=== PATIENT | female | born 1955 | race African-American/Black ===

== ENCOUNTER 2021-06-27 22:47 | Emergency (ER) | payer OTHER, MEDICAID ==
[~2021-06-27] VITALS: Ht 160 cm; Wt 81.6 kg
[2021-06-27 22:55] VITALS: BP_SYST 162
[2021-06-27 23:28] LABS: BASOPHILS % (AUTO) 0.4 % (0.0-2.0); EOSINOPHILS # (AUTO) 0.2 K/uL (0.0-0.4); EOSINOPHILS % (AUTO) 1.3 % (0.0-4.0); HEMATOCRIT 40.5 % (36-48); HEMOGLOBIN 12.8 g/dL (12.0-16.0); LYMPHOCYTES # (AUTO) 2.3 K/uL (1.0-5.5); LYMPHOCYTES % (AUTO) 18.8 % (20.5-51.5); MEAN CORPUSCULAR HEMOGLOBIN 25 pg (27-31); MEAN CORPUSCULAR HGB CONC 32 % (32-36); MEAN CORPUSCULAR VOLUME 79 fL (79.0-98.0); MONOCYTES # (AUTO) 1.2 K/uL (0.0-1.0); MONOCYTES % (AUTO) 10.3 % (1.7-9.3); NEUTROPHILS # (AUTO) 8.4 K/uL (1.8-7.7); NEUTROPHILS % (AUTO) 69.2 % (40.0-70.0); PLATELET COUNT (AUTO) 646 K/uL (130-430); RED BLOOD CELL COUNT(AUTO) 5.14 MIL/uL (4.2-6.2); RED CELL DISTRIBUTION WIDTH 21.8 % (9.0-15.0); WHITE BLOOD COUNT (AUTO) 12.1 K/uL (4.8-10.8)
[2021-06-27 23:36] LABS: CALCIUM 9.2 mg/dL (8.4-11.0); CREATININE 0.8 mg/dL (0.55-1.30); POTASSIUM 3.4 mmol/L (3.5-5.1)
[2021-06-27 23:42] LABS: ALBUMIN 2.8 g/dL (3.4-4.8); TOTAL BILIRUBIN 0.3 mg/dL (0.0-1.0)
[2021-06-27] MEDS ORDERED: MORPHINE 4 MG INJ. 4 MG/ML VIAL IM ONE (23:45)
[2021-06-28 00:20] VITALS: BP_SYST 122
[2021-06-28] MEDS ORDERED: HYDR-3917 PO (02:15)
== END 2021-06-28 02:30 | disposition home or self-care (01) ==
LOC: SED 22:47
DX: M16.0 Bilateral primary osteoarthritis of hip (principal)
CPT/HCPCS: 36415; 72170; 80053; 83605; 85025; 96372; 99284; J2270

== ENCOUNTER 2022-03-01 10:54 | Outpatient (CLI) | payer OTHER, MEDICAID ==
[~2022-03-01 10:54] MED LIST: HYDR-3917 PO
== END 2022-03-01 20:49 | disposition home or self-care (01) ==
LOC: SMA 10:54
PROVIDERS: ATTEND Family Medicine
DX: Z12.31 Encounter for screening mammogram for malignant neoplasm of breast (principal)
CPT/HCPCS: 77067

== ENCOUNTER 2022-07-30 17:52 | Inpatient (IN) | payer OTHER, MEDICAID ==
[~2022-07-30] VITALS: Ht 160 cm; Wt 89.1 kg
[2022-07-30 18:03] VITALS: BP_SYST 95
--- NOTE | 2022-07-30 19:17 | NUR ---
[facility] CALLED WANTING STATUS UPDATE, REQUESTING CALL BACK WITH MORE INFO WHEN AVAILABLE
[2022-07-30] MEDS ORDERED: IPRATROPIUM/ALBUTEROL SULFATE 3 ML AMPUL.NEB (DUONEB) INH ONE (19:30)
[2022-07-30] MEDS ORDERED: predniSONE 20 MG TABLET PO ONE (19:30)
--- NOTE | 2022-07-30 20:20 | NUR ---
Placed in room 04 . Placed on chemical processing equipment repairer, blood pressure machine and pulse oximeter. To gown for exam. Side rails up.
[2022-07-30 20:59] LABS: BASOPHILS % (AUTO) 0.2 % (0.0-2.0); EOSINOPHILS # (AUTO) 0.4 K/uL (0.0-0.4); EOSINOPHILS % (AUTO) 4.4 % (0.0-4.0); HEMATOCRIT 46.8 % (36-48); HEMOGLOBIN 14.7 g/dL (12.0-16.0); LYMPHOCYTES # (AUTO) 1.2 K/uL (1.0-5.5); LYMPHOCYTES % (AUTO) 13.6 % (20.5-51.5); MEAN CORPUSCULAR HEMOGLOBIN 27 pg (27-31); MEAN CORPUSCULAR HGB CONC 31 % (32-36); MEAN CORPUSCULAR VOLUME 86 fL (79.0-98.0); MONOCYTES # (AUTO) 0.9 K/uL (0.0-1.0); MONOCYTES % (AUTO) 10.8 % (1.7-9.3); NEUTROPHILS # (AUTO) 6.1 K/uL (1.8-7.7); PLATELET COUNT (AUTO) 582 K/uL (130-430); RED BLOOD CELL COUNT(AUTO) 5.47 MIL/uL (4.2-6.2); WHITE BLOOD COUNT (AUTO) 8.5 K/uL (4.8-10.8)
[2022-07-30 21:55] LABS: ANION GAP 16 (5-15); CALCIUM 8.8 mg/dL (8.4-11.0); CHLORIDE 100 mmol/L (98-107); CREATININE 3.83 mg/dL (0.55-1.30); GLUCOSE 72 mg/dL (70-99); UREA NITROGEN, BLOOD 58 mg/dL (8-21)
--- NOTE | 2022-07-30 22:00 | NUR ---
PT IS ALERT AND ORIENTED X 4. PT IS BED BOUND . WITH 2 L NASAL CANULA.
[2022-07-30 22:04] LABS: GFR AFRICAN AMERICAN 15 mL/min (>90)
[2022-07-30 22:08] LABS: ALANINE AMINOTRANSFERASE 26 U/L (12-78); ASPARTATE AMINOTRANSFERASE 83 U/L (10-37); TOTAL BILIRUBIN 0.2 mg/dL (0.0-1.0)
[2022-07-30] MEDS ORDERED: NS 500 ML IV ONE (22:15)
[2022-07-30] MEDS ORDERED: ACETAMINOPHEN 500 MG TABLET PO ONE (22:15)
[2022-07-30 22:43] LABS: ALBUMIN 2.7 g/dL (3.4-4.8)
[2022-07-30] MEDS ORDERED: IPRATROPIUM/ALBUTEROL SULFATE 3 ML AMPUL.NEB (DUONEB) INH PRN (22:45)
[2022-07-30] MEDS: D5/0.45 NS 1,000 ML IV SCH (22:45)
--- NOTE | 2022-07-31 | NUR ---
PT IS RESTING. NO ACUTE DISTRESS NOTED. LOW BED
[2022-07-31 00:41] VITALS: BP_SYST 129
[2022-07-31] MEDS ORDERED: OXYCODONE/ACETAMINOPHEN *10*mg/325 mg TABLET PO PRN (02:00)
[2022-07-31] MEDS ORDERED: POLYETHYLENE GLYCOL 3350, 17 GM/ POWD.PACK PO PRN (02:00)
[2022-07-31] MEDS ORDERED: DOCUSATE SODIUM 100 MG CAPSULE PO PRN (02:00)
[2022-07-31] MEDS ORDERED: DIPHENHYDRAMINE HCL 12.5 MG/5 ML UDC PO PRN (02:00)
[2022-07-31] MEDS ORDERED: IPRATROPIUM/ALBUTEROL SULFATE 3 ML AMPUL.NEB (DUONEB) INH PRN (02:00)
[2022-07-31] MEDS ORDERED: hydrALAZINE HCL 25 MG TABLET PO PRN (02:00)
[2022-07-31] MEDS ORDERED: IPRATROPIUM/ALBUTEROL SULFATE 3 ML AMPUL.NEB (DUONEB) INH SCH (03:00)
[2022-07-31] MEDS ORDERED: FLUO40CA8 PO (05:28)
[2022-07-31] MEDS ORDERED: GABA600T PO (05:29)
[2022-07-31] MEDS ORDERED: GLUC1VIA4 IM (05:32)
[2022-07-31] MEDS ORDERED: HYDR-4039 PO ×2 (05:34→05:36)
[2022-07-31] MEDS ORDERED: IPRA4AER INH (05:37)
[2022-07-31] MEDS ORDERED: FURO-150 PO (05:38)
[2022-07-31] MEDS ORDERED: LEVO137T2 PO (05:40)
[2022-07-31] MEDS ORDERED: LISI20TA30 PO (05:41)
[2022-07-31] MEDS ORDERED: METO50TA7 PO (05:42)
[2022-07-31] MEDS ORDERED: POLY17PO4 PO (05:43)
[2022-07-31] MEDS ORDERED: MORP15TA60 PO (05:44)
[2022-07-31] MEDS ORDERED: FISH1CAP18 PO (05:45)
[2022-07-31] MEDS ORDERED: OMEP40CA20 PO (05:46)
[2022-07-31] MEDS ORDERED: ACET325C5 PO (05:47)
[2022-07-31] MEDS ORDERED: SPIR50TA PO (05:47)
[2022-07-31] MEDS ORDERED: NOR10 PO (05:48)
[2022-07-31] MEDS ORDERED: DIPH25CA83 PO (05:49)
[2022-07-31] MEDS ORDERED: BUSP5TAB3 PO (05:49)
[2022-07-31] MEDS ORDERED: DULO20CA PO ×2 (05:50→05:51)
[2022-07-31] MEDS ORDERED: DIVA250T PO (05:52)
[2022-07-31] MEDS ORDERED: DOCU-144 PO (05:53)
[2022-07-31] MEDS ORDERED: SACC250C3 PO (05:53)
[2022-07-31] MEDS ORDERED: PERC10 PO (05:54)
[2022-07-31] MEDS ORDERED: PRAZ1CAP2 PO (05:55)
[2022-07-31] MEDS ORDERED: TRAZ-250 PO (05:59)
[2022-07-31] MEDS ORDERED: CHOL500013 (06:01)
[2022-07-31] MEDS ORDERED: CHOL500052 PO (06:01)
[2022-07-31] MEDS ORDERED: NL IV (06:03)
--- NOTE | 2022-07-31 06:03 | NUR ---
Medication reconciliation completed with information provided by [facility]. Any prior medication reconciliation on file was reviewed and corrected.
[2022-07-31] MEDS ORDERED: ALBUTEROL SULFATE 0.083% 2.5 MG/3 ML VIAL.NEB INH PRN (07:00)
[2022-07-31] MEDS ORDERED: LEVOTHYROXINE SODIUM 0.137 MG TABLET PO SCH (07:00)
[2022-07-31] MEDS ORDERED: IPRATROPIUM BROM 0.5 MG/2.5 ML VIAL.NEB (ATROVENT) INH PRN (07:00)
--- NOTE | 2022-07-31 07:28 | NUR ---
Admit bed requested Patient will be admitted to care of [TEENA]. Admitted to [[facility] ] unit. Diagnosis [PNA] Inpatient (Yes or No) [YES] Observation (Yes or No) [NO] Orientation concerns or request close to nursing station (Yes or No) [] Covid Status [-] On vent or bipap [] Isolation requirements [NO] Needs a sitter [NO] From Home (Yes or if No enter name of facility) [[facility]] Requires Dialysis (Yes or No) [NO] Med Rec Completed (Yes of No) [YES]
--- NOTE | 2022-07-31 07:52 | NUR ---
Received report from restaurant shift supervisor RN Pt resting comfortably at this time BP 95/33 upon arrival Pt agitated when awaken from sleep Will continue to monitor
[2022-07-31] MEDS ORDERED: SACCHAROMYCES BOULARDII 250 MG CAPSULE (FLORASTOR) PO SCH (09:00)
[2022-07-31] MEDS ORDERED: lisinopriL 20 MG TABLET PO SCH (09:00)
[2022-07-31] MEDS ORDERED: FLUoxetine HCL 20 MG CAPSULE (PROzac) PO SCH (09:00)
[2022-07-31] MEDS ORDERED: FUROSEMIDE 20 MG/2 ML VIAL IVP SCH (09:00)
[2022-07-31] MEDS ORDERED: SPIRONOLACTONE 50 MG TABLET (ALDACTONE) PO SCH (09:00)
[2022-07-31] MEDS ORDERED: amLODIPine BESYLATE 10 MG TABLET PO SCH (09:00)
[2022-07-31] MEDS ORDERED: GABAPENTIN 300 MG CAPSULE PO SCH (09:00)
[2022-07-31] MEDS ORDERED: CHOLECALCIFEROL (VITAMIN D3) 5,000 UNIT TABLET PO SCH (09:00)
[2022-07-31] MEDS ORDERED: DULoxetine HCL 20 MG CAPSULE.DR PO SCH (09:00)
[2022-07-31] MEDS ORDERED: OMEGA-3/DHA/EPA/FISH OIL 1 GM CAPSULE PO SCH (09:00)
[2022-07-31] MEDS ORDERED: OMEPRAZOLE Non-Formulary 20 MG CAPSULE.DR PO SCH (09:00)
[2022-07-31] MEDS ORDERED: MORPHINE SULFATE 15 MG TABLET.ER PO SCH (09:00)
[2022-07-31] MEDS ORDERED: PANTOPRAZOLE SODIUM 40 MG TAB PO SCH (09:00)
[2022-07-31] MEDS ORDERED: METOPROLOL TARTRATE 50 MG TABLET PO SCH (09:00)
[2022-07-31] MEDS ORDERED: busPIRone HCL 5 MG TABLET PO SCH (09:00)
[2022-07-31] MEDS ORDERED: AZITHROMYCIN 250 MG in NS 250 ML IV SCH (09:00)
[2022-07-31] MEDS ORDERED: AZITHROMYCIN 500 MG/VIAL (ZITHROMAX) IV ONE (09:44)
[2022-07-31] MEDS: LEVOFLOXACIN 250 MG/D5W 50 ML IV SCH (09:44)
[2022-07-31] MEDS: ENOXAPARIN SODIUM 30 MG/0.3 ML SYRINGE SUBCUT SCH (09:45)
[2022-07-31] MEDS ORDERED: AZITHROMYCIN 500 MG in NS 250 ML IV SCH (10:00)
--- NOTE | 2022-07-31 11:16 | NUR ---
CONSULTATION PAGED/CALLED Reason for Consultation: [] RESP FAIL Person Who was Notified: [] NERI Consulting Physician: [] DR KRAMER Media Services Coordinator Specialty: [] PULMO Ordering Physician: [] DR OWENS
--- NOTE | 2022-07-31 11:17 | NUR ---
CONSULTATION PAGED/CALLED Reason for Consultation: [] RENAL FAIL Person Who was Notified: [] LUISITO Consulting Physician: [] DR DICKINSON Library Paraprofessional Specialty: [] NEPHRO Ordering Physician: [] DR OWENS
--- NOTE | 2022-07-31 11:30 | NUR ---
RECEIVED PATIENT FROM ER NURSE, AWAKE AND ORIENTED TO SELF, CONTINUOS EPISODES OF CONFUSION DURING ASSESSMENT, PATIENT ON 2LPM O2 VIA NC, NO C/O PAIN OR DISCOMFORT AT THIS TIME, WILL ASSUME ALL CARE OF PATIENT
[2022-07-31 11:42] VITALS: BP_SYST 102
[2022-07-31] MEDS: D5/0.45 NS 1,000 ML IV SCH (12:05)
--- NOTE | 2022-07-31 19:15 | NUR ---
change of shift.pt.presents lethargic status.affect:quiescent.pt.arousable but not unable to sustain alert status.cardio monitor presents stable cardio status.pt.presents iv access location lt.forearm.intact;patent.call light/telephone w/in access of the pt.
--- NOTE | 2022-07-31 20:00 | NUR ---
pt.assessed.v/s assessed values wnl.no c/o pain.nausea.pt.presents lethargic status.02-sat%96%.per flacc pain mgx pt.absent facial grimaces/body posturing.iv access intact;patent.pt.assessed for cleanliness.pt.repositioned.call light/ telephone placed w/in access of the pt.
[2022-07-31] MEDS ORDERED: traZODone HCL 50 MG TABLET (DESYREL) PO SCH (21:00)
[2022-07-31] MEDS ORDERED: PRAZOSIN HCL 1 MG CAPSULE PO SCH (21:00)
[2022-07-31] MEDS ORDERED: DIVALPROEX SODIUM 250 MG TAB.SR.24H (DEPAKOTE ER) PO SCH (21:00)
--- NOTE | 2022-07-31 21:00 | NUR ---
2100p medications administered.pt.capable to ingest the po medications w/out difficulty.no c/o pian,nausea. call light/telephone placed w/in access of the pt.
--- NOTE | 2022-07-31 22:00 | NUR ---
pt.assessed.pt.quiescent.iv access intact;patent.per flacc pain mgx pt.absent facial grimaces/body posturing.pt.assessed for cleanliness.pt.repositioned.call light/telephone placed w/in access of the pt.
--- NOTE | 2022-08-01 | NUR ---
pt.assessed.v/s assessed values wnl.no c/o pain,nausea.no requests posited@this hour.pt.assessed for cleanliness. pt.repositioned.call light/telephone placed w/in access of the pt.
[2022-08-01] MEDS: D5/0.45 NS 1,000 ML IV SCH ×2 (01:15→05:34)
--- NOTE | 2022-08-01 02:00 | NUR ---
pt.assessed.pt.quiescent.per flacc pain mgx pt.absent facial grimaces/body posturing.pt.assessed for cleanliness. pt.repositioned.call light/telephone placed w/in access of the pt.
--- NOTE | 2022-08-01 04:00 | NUR ---
pt.assessed.pt.quiescent;somnolent.per flacc pain mgx pt.absent facial grimaces/body posturing.pt.assessed for cleanliness. pt.repositioned.iv access intact.i have taken photos of the lower extremities.call light/telephone placed w/in access of the pt.
--- NOTE | 2022-08-01 06:00 | NUR ---
pt.assessed.pt.assessed for cleanliness.pt.repositioned.noted pt.presents wounds sacrum.wound photographed initial wound care attended to..iv access intact;patent pt.c/o pain no medication;pain ordered./elsa abebe.pt.weighed 2/t chf hx.call light/telephone placed w/in access of the pt.
[2022-08-01 06:49] LABS: BASOPHILS % (AUTO) 0.3 % (0.0-2.0); EOSINOPHILS % (AUTO) 0.5 % (0.0-4.0); HEMATOCRIT 43.2 % (36-48); HEMOGLOBIN 13.8 g/dL (12.0-16.0); LYMPHOCYTES % (AUTO) 11.2 % (20.5-51.5); MEAN CORPUSCULAR HEMOGLOBIN 27 pg (27-31); MEAN CORPUSCULAR HGB CONC 32 % (32-36); MEAN CORPUSCULAR VOLUME 84 fL (79.0-98.0); MONOCYTES # (AUTO) 1.2 K/uL (0.0-1.0); MONOCYTES % (AUTO) 13.3 % (1.7-9.3); NEUTROPHILS # (AUTO) 6.7 K/uL (1.8-7.7); NEUTROPHILS % (AUTO) 74.7 % (40.0-70.0); PLATELET COUNT (AUTO) 658 K/uL (130-430); RED BLOOD CELL COUNT(AUTO) 5.14 MIL/uL (4.2-6.2); RED CELL DISTRIBUTION WIDTH 17.6 % (9.0-15.0)
--- NOTE | 2022-08-01 08:00 | NUR ---
RECEIVED PATIENT FROM PM NURSE, ALERT TO SELF AND SITUATION, IN AND OUT OF SLEEP DURING ASSESMENT, NO C/O PAIN OR DISCOMFORT, WILL ASSUME ALL CARE OF PATIENT
[2022-08-01 08:59] LABS: ALBUMIN 2.4 g/dL (3.4-4.8); CREATININE 2.42 mg/dL (0.55-1.30); TOTAL BILIRUBIN 0.2 mg/dL (0.0-1.0)
[2022-08-01] MEDS: ENOXAPARIN SODIUM 30 MG/0.3 ML SYRINGE SUBCUT SCH (09:48)
[2022-08-01 13:44] VITALS: BP_SYST 146
--- NOTE | 2022-08-01 17:00 | NUR ---
WOUND CARE TO COCCYX COMPLETE, PATIENT TOLERATED WELL
[2022-08-01 18:27] VITALS: BP_SYST 154
--- NOTE | 2022-08-01 20:35 | NUR ---
Patient REFUSING IV Re Insertion .
[2022-08-01 21:00] VITALS: BP_SYST 137
--- NOTE | 2022-08-01 21:05 | NUR ---
Phoned paged DR TEENA BRISCOE
--- NOTE | 2022-08-01 21:10 | NUR ---
NEW ORDERS FOR PAIN MEDICATION NORCO 5/325 MG PO
--- NOTE | 2022-08-01 21:20 | NUR ---
UPDATED DR DICKINSON PATIENT REFUSING IV & IV REINSERTION .
[2022-08-02] VITALS: BP_SYST 154
[2022-08-02] MEDS: HYDROcodone/ACETAMIN 5-325 MG TAB (NORCO/ VICODIN) PO PRN ×3 (00:14→17:15)
[2022-08-02 00:20] LABS: BILIRUBIN,URINE NEGATIVE (NEGATIVE); COLOR,URINE YELLOW (YELLOW); GLUCOSE,URINE NEGATIVE (NEGATIVE); KETONES,URINE NEGATIVE (NEGATIVE); LEUKOCYTE ESTERASE ,URINE 1+ (NEGATIVE); NITRITE, URINE NEGATIVE (NEGATIVE); PROTEIN URINE NEGATIVE (NEGATIVE); UROBILINOGEN,URINE 0.2 (0.2-1.0)
--- NOTE | 2022-08-02 00:22 | NUR ---
URINE collected & sent to LAB .
[2022-08-02 00:24] LABS: BLOOD, URINE TRACE (NEGATIVE)
[2022-08-02 00:26] LABS: CLARITY/URINE SLIGHTLY CLOUDY (CLEAR)
--- NOTE | 2022-08-02 00:27 | NUR ---
NORCO 5/325 MG PO GIVEN FOR GENERAL PAIN comfort measures implemented off loading with pillows tolerated .
[2022-08-02 00:29] LABS: BACTERIA,URINE FEW /HPF (None Seen); WBC,URINE 50-80 /HPF (0-3); YEAST,URINE Few /HPF (None Seen)
--- NOTE | 2022-08-02 01:47 | NUR ---
Reposition & Turning off loading with pillows on schedule kept clean also dry as needed comfort measures helpful & tolerated .
[2022-08-02] MEDS: D5/0.45 NS 1,000 ML IV SCH ×2 (04:05→17:25)
--- NOTE | 2022-08-02 04:56 | NUR ---
Hourly Rounding patient awake comfort measures implemented Reposition & Turn on schedule tolerate skin dry warm .
--- NOTE | 2022-08-02 06:38 | NUR ---
NORCO TABLET po given for general pain off loading & position change on schedule helpful .
[2022-08-02] MEDS: LEVOFLOXACIN 250 MG/D5W 50 ML IV SCH ×2 (09:24→09:27)
[2022-08-02] MEDS: ENOXAPARIN SODIUM 30 MG/0.3 ML SYRINGE SUBCUT SCH (09:24)
[2022-08-02] MEDS ORDERED: MORPHINE SULFATE 15 MG TABLET.ER PO ONE (10:15)
[2022-08-02 12:00] VITALS: BP_SYST 148
[2022-08-02 14:35] LABS: CREATININE 1.32 mg/dL (0.55-1.30)
[2022-08-02 16:00] VITALS: BP_SYST 163
[2022-08-02] MEDS ORDERED: DOCUSATE SODIUM 100 MG CAPSULE PO PRN (17:15)
[2022-08-02 19:00] VITALS: BP_SYST 129
--- NOTE | 2022-08-02 19:30 | NUR ---
handoff has been given to Ron
[2022-08-02 20:00] VITALS: BP_SYST 129
--- NOTE | 2022-08-02 20:48 | NUR ---
Patient requested to be bathe. Due to patient condition, per patient hip displacement, need assistance of nurse. Informed nurse Ron for assistance, Stated he will need to finish med pass. Provided number to call me to change pt.
[2022-08-02] MEDS ORDERED: MORPHINE SULFATE 15 MG TABLET.ER PO SCH (21:00)
[2022-08-02] MEDS: DIVALPROEX SODIUM 250 MG TAB.SR.24H (DEPAKOTE ER) PO SCH (21:00)
--- NOTE | 2022-08-02 22:00 | NUR ---
Reminded catalina banks to call me for patient to be changed. Nurse banks informed and aware.
[2022-08-02] MEDS: hydrALAZINE HCL 25 MG TABLET PO SCH (23:37)
[2022-08-02] MEDS: busPIRone HCL 5 MG TABLET PO SCH (23:37)
[2022-08-02] MEDS: METOPROLOL TARTRATE 50 MG TABLET PO SCH (23:39)
[2022-08-02] MEDS: MORPHINE SULFATE 15 MG TABLET.ER PO SCH (23:39)
[2022-08-02] MEDS: GABAPENTIN 300 MG CAPSULE PO SCH (23:39)
[2022-08-03] VITALS (7 sets, daily range): BP systolic 141–170
[2022-08-03] MEDS: LEVOTHYROXINE SODIUM 0.137 MG TABLET PO SCH (05:57)
[2022-08-03] MEDS: D5/0.45 NS 1,000 ML IV SCH (06:45)
[2022-08-03 06:59] LABS: BASOPHILS % (AUTO) 0.5 % (0.0-2.0); EOSINOPHILS # (AUTO) 0.1 K/uL (0.0-0.4); HEMATOCRIT 49.6 % (36-48); HEMOGLOBIN 16.1 g/dL (12.0-16.0); LYMPHOCYTES # (AUTO) 1.4 K/uL (1.0-5.5); LYMPHOCYTES % (AUTO) 15.2 % (20.5-51.5); MEAN CORPUSCULAR HEMOGLOBIN 27 pg (27-31); MEAN CORPUSCULAR HGB CONC 32 % (32-36); MEAN CORPUSCULAR VOLUME 83 fL (79.0-98.0); MONOCYTES # (AUTO) 1.4 K/uL (0.0-1.0); MONOCYTES % (AUTO) 15.3 % (1.7-9.3); NEUTROPHILS # (AUTO) 6.1 K/uL (1.8-7.7); PLATELET COUNT (AUTO) 648 K/uL (130-430); RED BLOOD CELL COUNT(AUTO) 6.01 MIL/uL (4.2-6.2); RED CELL DISTRIBUTION WIDTH 16.9 % (9.0-15.0)
[2022-08-03 07:26] LABS: CALCIUM 9.6 mg/dL (8.4-11.0); CREATININE 1.09 mg/dL (0.55-1.30)
--- NOTE | 2022-08-03 08:00 | NUR ---
Initial Notes Patient is AOx3. Forgetful. No ss of distress noted. Breathing is even and nonlabored, on room air. NO SOB noted. Patient denies pain. Vital signs obtained, as documented. Patient has no IV access. Bed is locked, alarm on, and at lowest position. Call light within reach.
--- NOTE | 2022-08-03 10:13 | NUR ---
Dietitian Recommendations * Continue consistent CHO diet. Recommend downgrading to soft texture d/t missing dentures * Rec Glucerna BID * Consider wound supplements: MVI, 250 mg VIT C, Tremayne BID * Consider 220mg ZnSO4 x 14 days for wound healing * Send snacks between meals; RD noted in computrition GS, MPH, RD Please refer to RD Assessment for further details Addendum: 08/03/22 at [address] Amended: Links added.
[2022-08-03] MEDS: GABAPENTIN 300 MG CAPSULE PO SCH ×2 (10:25→21:24)
[2022-08-03] MEDS: amLODIPine BESYLATE 10 MG TABLET PO SCH (10:26)
[2022-08-03] MEDS: DULoxetine HCL 20 MG CAPSULE.DR PO SCH (10:26)
[2022-08-03] MEDS: METOPROLOL TARTRATE 50 MG TABLET PO SCH ×2 (10:26→21:24)
[2022-08-03] MEDS: hydrALAZINE HCL 25 MG TABLET PO SCH ×3 (10:27→21:22)
[2022-08-03] MEDS: MORPHINE SULFATE 15 MG TABLET.ER PO SCH ×2 (10:27→21:24)
[2022-08-03] MEDS: ENOXAPARIN SODIUM 30 MG/0.3 ML SYRINGE SUBCUT SCH (10:28)
[2022-08-03] MEDS: busPIRone HCL 5 MG TABLET PO SCH ×2 (10:28→21:22)
--- NOTE | 2022-08-03 10:30 | NUR ---
Notes Patient has been cleaned and reposition. Wound care done. Patient tolerated well. No ss of distress noted. New IV inserted to R Forearm 22 G. Blood return. Flushes well. Patent.
--- NOTE | 2022-08-03 12:00 | NUR ---
Notes Patient is eating lunch. No ss of distress noted. Denies pain. NO SOB noted. Safety precautions in place and call light within reach.
[2022-08-03] MEDS: NORMAL SALINE 5 ML DISP.SYRIN IVF SCH ×2 (13:58→21:25)
--- NOTE | 2022-08-03 16:00 | NUR ---
NOTES- HOSPICE Hospice nurse at bedside talking to patient and family. Hospice nurse is Veronica, from [facility] Contact info: work phone cellphone
--- NOTE | 2022-08-03 16:55 | NUR ---
notes patient gives consent to give information or call son and his regarding her care Lázaro Casillas (SON) Marika Godoy (daughter in law)
--- NOTE | 2022-08-03 16:57 | NUR ---
Notes Patient has been reposition and is resting. Denies pain. No distress noted. Safety precautions in place and call light within reach.
--- NOTE | 2022-08-03 18:56 | NUR ---
Closing Notes Patient is awake, watching TV, and eating dinner. Denies pain. No SOB noted. Breathing is even and nonlabored, on room air. IV patent. No ss of distress noted. Patient is stable. All needs met. Bed is locked, alarm on, and at lowest position. Call light within reach.
[2022-08-03] MEDS: DIVALPROEX SODIUM 250 MG TAB.SR.24H (DEPAKOTE ER) PO SCH (21:23)
[2022-08-04 02:02] VITALS: BP_SYST 143
[2022-08-04] MEDS: HYDROcodone/ACETAMIN 5-325 MG TAB (NORCO/ VICODIN) PO PRN ×2 (03:50→12:01)
[2022-08-04] MEDS: NORMAL SALINE 5 ML DISP.SYRIN IVF SCH ×3 (05:58→20:56)
[2022-08-04] MEDS: LEVOTHYROXINE SODIUM 0.137 MG TABLET PO SCH (06:05)
[2022-08-04 07:14] LABS: BASOPHILS # (AUTO) 0.1 K/uL (0.0-0.2); BASOPHILS % (AUTO) 0.9 % (0.0-2.0); EOSINOPHILS # (AUTO) 0.4 K/uL (0.0-0.4); HEMATOCRIT 49.2 % (36-48); HEMOGLOBIN 15.9 g/dL (12.0-16.0); LYMPHOCYTES # (AUTO) 2.7 K/uL (1.0-5.5); MEAN CORPUSCULAR HEMOGLOBIN 26 pg (27-31); MEAN CORPUSCULAR HGB CONC 32 % (32-36); MEAN CORPUSCULAR VOLUME 82 fL (79.0-98.0); MONOCYTES # (AUTO) 1.9 K/uL (0.0-1.0); MONOCYTES % (AUTO) 13.7 % (1.7-9.3); NEUTROPHILS # (AUTO) 8.9 K/uL (1.8-7.7); NEUTROPHILS % (AUTO) 63.4 % (40.0-70.0); PLATELET COUNT (AUTO) 691 K/uL (130-430); RED BLOOD CELL COUNT(AUTO) 6.01 MIL/uL (4.2-6.2); RED CELL DISTRIBUTION WIDTH 16.9 % (9.0-15.0)
[2022-08-04 07:24] LABS: ALBUMIN 2.5 g/dL (3.4-4.8); C-REACTIVE PROTEIN QUANT 0.5 mg/dL (0-0.5); CALCIUM 9.3 mg/dL (8.4-11.0); CREATININE 1.09 mg/dL (0.55-1.30); TOTAL BILIRUBIN 0.5 mg/dL (0.0-1.0)
[2022-08-04 08:00] VITALS: BP_SYST 112; BP_SYST 136
[2022-08-04 11:28] LABS: ERYTHROCYTE SEDIMENTATION RATE 7 MM/HR (0-20)
[2022-08-04 12:00] VITALS: BP_SYST 161
[2022-08-04] MEDS: GABAPENTIN 300 MG CAPSULE PO SCH ×2 (12:02→20:56)
[2022-08-04] MEDS: hydrALAZINE HCL 25 MG TABLET PO SCH ×3 (12:02→20:54)
[2022-08-04] MEDS: LEVOFLOXACIN 250 MG/D5W 50 ML IV SCH (12:02)
[2022-08-04] MEDS: DULoxetine HCL 20 MG CAPSULE.DR PO SCH (12:03)
[2022-08-04] MEDS: busPIRone HCL 5 MG TABLET PO SCH ×2 (12:03→20:55)
[2022-08-04] MEDS: MORPHINE SULFATE 15 MG TABLET.ER PO SCH ×2 (12:03→20:56)
[2022-08-04] MEDS: amLODIPine BESYLATE 10 MG TABLET PO SCH (12:03)
[2022-08-04] MEDS: METOPROLOL TARTRATE 50 MG TABLET PO SCH ×2 (12:06→20:55)
[2022-08-04] MEDS: ENOXAPARIN SODIUM 30 MG/0.3 ML SYRINGE SUBCUT SCH (12:07)
[2022-08-04 16:00] VITALS: BP_SYST 135
[2022-08-04] MEDS: ACETAMINOPHEN 650 MG/20.3 ML UDC GT PRN (17:49)
--- NOTE | 2022-08-04 18:30 | NUR ---
Miss Sotelo has been noted to be pleasant and cooperative this shift. her case management department did contact staff related to hospices eval and DCP. Yudy [phone] states that things will likely be finalized tomorrow and that the personal property appraiser should be her son Lázaro. a new order for Tylenol was obtained and given for a headache
[2022-08-04 19:00] VITALS: BP_SYST 145
--- NOTE | 2022-08-04 19:15 | NUR ---
handoff has been given to Ron
[2022-08-04 20:00] VITALS: BP_SYST 145
[2022-08-04] MEDS: DIVALPROEX SODIUM 250 MG TAB.SR.24H (DEPAKOTE ER) PO SCH (20:58)
[2022-08-05 01:14] VITALS: BP_SYST 127
[2022-08-05] MEDS: ACETAMINOPHEN 650 MG/20.3 ML UDC GT PRN ×2 (01:54→22:54)
[2022-08-05] MEDS: HYDROcodone/ACETAMIN 5-325 MG TAB (NORCO/ VICODIN) PO PRN ×3 (04:17→22:55)
[2022-08-05] MEDS: NORMAL SALINE 5 ML DISP.SYRIN IVF SCH ×3 (06:48→22:52)
[2022-08-05] MEDS: LEVOTHYROXINE SODIUM 0.137 MG TABLET PO SCH (06:48)
--- NOTE | 2022-08-05 08:00 | NUR ---
Miss Sotelo has been assessed as indicated. Her mentation remains cleat. She has no periods of confusion and is resting quietly at this time
[2022-08-05 08:34] LABS: BASOPHILS # (AUTO) 0.1 K/uL (0.0-0.2); BASOPHILS % (AUTO) 0.5 % (0.0-2.0); EOSINOPHILS # (AUTO) 0.6 K/uL (0.0-0.4); HEMATOCRIT 51.3 % (36-48); HEMOGLOBIN 16.6 g/dL (12.0-16.0); LYMPHOCYTES # (AUTO) 2.9 K/uL (1.0-5.5); MEAN CORPUSCULAR HEMOGLOBIN 27 pg (27-31); MEAN CORPUSCULAR HGB CONC 32 % (32-36); MEAN CORPUSCULAR VOLUME 83 fL (79.0-98.0); MONOCYTES # (AUTO) 1.7 K/uL (0.0-1.0); MONOCYTES % (AUTO) 11.6 % (1.7-9.3); NEUTROPHILS # (AUTO) 9.4 K/uL (1.8-7.7); NEUTROPHILS % (AUTO) 63.9 % (40.0-70.0); PLATELET COUNT (AUTO) 607 K/uL (130-430); RED BLOOD CELL COUNT(AUTO) 6.21 MIL/uL (4.2-6.2); RED CELL DISTRIBUTION WIDTH 16.7 % (9.0-15.0); WHITE BLOOD COUNT (AUTO) 14.6 K/uL (4.8-10.8)
[2022-08-05 09:08] LABS: ALANINE AMINOTRANSFERASE 18 U/L (12-78); ALBUMIN 2.5 g/dL (3.4-4.8); ANION GAP 5 (5-15); ASPARTATE AMINOTRANSFERASE 27 U/L (10-37); CHLORIDE 102 mmol/L (98-107); CREATININE 1.31 mg/dL (0.55-1.30); GLUCOSE 86 mg/dL (70-99); PHOSPHORUS 2.8 mg/dL (2.7-4.5); TOTAL BILIRUBIN 0.4 mg/dL (0.0-1.0); UREA NITROGEN, BLOOD 23 mg/dL (8-21)
[2022-08-05 09:51] LABS: GFR AFRICAN AMERICAN 52 mL/min (>90)
[2022-08-05 09:58] LABS: C-REACTIVE PROTEIN QUANT < 0.2 mg/dL (0-0.5)
[2022-08-05] MEDS: busPIRone HCL 5 MG TABLET PO SCH ×2 (10:27→22:50)
[2022-08-05] MEDS: METOPROLOL TARTRATE 50 MG TABLET PO SCH ×2 (10:28→22:51)
[2022-08-05] MEDS: amLODIPine BESYLATE 10 MG TABLET PO SCH (10:28)
[2022-08-05] MEDS: MORPHINE SULFATE 15 MG TABLET.ER PO SCH ×2 (10:28→22:47)
[2022-08-05] MEDS: GABAPENTIN 300 MG CAPSULE PO SCH ×2 (10:29→22:47)
[2022-08-05] MEDS: hydrALAZINE HCL 25 MG TABLET PO SCH ×3 (10:29→22:50)
[2022-08-05] MEDS: DULoxetine HCL 20 MG CAPSULE.DR PO SCH (10:29)
[2022-08-05] MEDS: ENOXAPARIN SODIUM 30 MG/0.3 ML SYRINGE SUBCUT SCH (10:30)
[2022-08-05 11:24] LABS: URINE SODIUM, RANDOM 77 mmol/L (40-220)
[2022-08-05 12:20] VITALS: BP_SYST 109
[2022-08-05] MEDS: 0.45% NACL 1,000 ML IV SCH (13:15)
[2022-08-05 14:06] LABS: ERYTHROCYTE SEDIMENTATION RATE 2 MM/HR (0-20)
[2022-08-05] MEDS: FLUCONAZOLE 100 mg/ NS 50 ML IV SCH (16:14)
[2022-08-05 17:45] VITALS: BP_SYST 144
--- NOTE | 2022-08-05 18:00 | NUR ---
Miss Sotelo has been successfully treated for headache as well as bilateral hip pain. She has been repositioned frequently. Newly ordered IVF and ABX have been well tolerated. She anticipates that family will be in to visit her this evening. She is presently resting quietly
--- NOTE | 2022-08-05 19:15 | NUR ---
Handoff has been given to Lily
[2022-08-05] MEDS: DIVALPROEX SODIUM 250 MG TAB.SR.24H (DEPAKOTE ER) PO SCH (23:15)
[2022-08-06 01:02] VITALS: BP_SYST 140
[2022-08-06] MEDS: LEVOTHYROXINE SODIUM 0.137 MG TABLET PO SCH (07:10)
[2022-08-06] MEDS: NORMAL SALINE 5 ML DISP.SYRIN IVF SCH ×3 (07:10→23:04)
[2022-08-06] MEDS: 0.45% NACL 1,000 ML IV SCH (07:45)
[2022-08-06 07:55] LABS: CALCIUM 8.7 mg/dL (8.4-11.0); CREATININE 0.97 mg/dL (0.55-1.30)
[2022-08-06 08:27] VITALS: BP_SYST 127
--- NOTE | 2022-08-06 08:30 | NUR ---
Dietitian Recommendations * Continue consistent CHO diet. Recommend downgrading to soft texture d/t missing dentures * Rec Glucerna BID * Consider wound supplements: MVI, 250 mg VIT C, Tremayne BID * Consider 220mg ZnSO4 x 14 days for wound healing * Consider obtaining Hgba1c value GS, MPH, RD Please refer to Nutrition F/U for further details
--- NOTE | 2022-08-06 08:30 | NUR ---
Nutrition F/U RD reviewed pts current EMR including diet hx, physician notes, nursing notes, pertinent labs/meds/procedures, care trends and care activity. Short note d/t high workload Medical History Comment: per EMR: 67yo female presented to ER [facility] after staff reports that patient was noticed to be hypoxic with low O2 saturation associated with lethargy and altered mental status. Staff placed the patient on 10 L nasal cannula and EMS was called. On EMS arrival, EMS reports that patient was alert and oriented x3. Patient was placed on 6 L nasal cannula. Patient is not on home O2. No alleviating or exacerbating factors. Patient denies cough, chest pain, shortness of breath, nausea, vomiting, fever, or any other medical complaints. Because of above, patient was taken to the ER for further evaluation and treatment. Pt found to have DIANN on CKD PMHx: CHF, COPD, and diabetes Subjective Information RD rounded to pt room and s/w pt. She says the food texture modification has been helpful. She asked for some snacks ; RD got for her and noted in computrition. Pt states she is not diabetic, but she is on Consistent CHO diet, RD said she would look into that. Pt is eating better and says she will be D/C soon. Per EMR review, abd soft, distended; active bowel sounds. Pertinent Medications Reviewed Pertinent Labs Reviewed Height (Feet) 5 feet Height (Inches) 3.00 inches Weight (Pounds) 195 pounds Weight (Calculated Kilograms) 88.350243 kilograms Patient Weight 88.451 kg Body Mass Index 34.54 kg/m2 %IBW 171 Basehor/Adjusted Body Weight 115#/ 52 kg / ABW 62 kg Recent Weight Change Yes - 15# in a month, intentional loss Weight Status Obese Gastrointestinal Symptoms Nausea Last BM Aug 04, 2022 Difficulty With: Chewing Food Allergies per pt Usual Diet At Home Consistent CHO at facility per RN screen Current % PO Good avg of 75% x 8 meals Estimated Energy Expenditure (kcals/day) 5767-8421 kcal (25-30 kcal/kg ABW d/t wound healing) Estimated Protein Required (g/day) 50- 62g (.8-1 g/kg ABW d/t wounds, DIANN) Estimated Fluid Required (l/day) Refer to MD (DIANN) Problem/Etiology/Signs/Symptoms * Increased energy and protein utilization r/t metabolic demands a/e/b estimated nutritional needs for wound healing (ongoing) Expected Outcomes/Goals PO intake provides >85% estimated nutrient needs, nutrition-related labs trending WNL, improvements in skin integrity, BM q1-3 days Dietitian Recommendations * Continue consistent CHO diet. Recommend downgrading to soft texture d/t missing dentures * Rec Glucerna BID * Consider wound supplements: MVI, 250 mg VIT C, Tremayne BID * Consider 220mg ZnSO4 x 14 days for wound healing * Consider obtaining Hgba1c value Follow Up Mod Risk: F/U in 3-5days GS, MPH, RD
[2022-08-06 08:35] VITALS: BP_SYST 127
[2022-08-06] MEDS: busPIRone HCL 5 MG TABLET PO SCH ×2 (09:19→23:00)
[2022-08-06] MEDS: MORPHINE SULFATE 15 MG TABLET.ER PO SCH ×2 (09:20→23:07)
[2022-08-06] MEDS: GABAPENTIN 300 MG CAPSULE PO SCH ×2 (09:20→23:00)
[2022-08-06] MEDS: hydrALAZINE HCL 25 MG TABLET PO SCH ×3 (09:20→23:07)
[2022-08-06] MEDS: METOPROLOL TARTRATE 50 MG TABLET PO SCH ×2 (09:21→23:02)
[2022-08-06] MEDS: ENOXAPARIN SODIUM 30 MG/0.3 ML SYRINGE SUBCUT SCH (09:22)
[2022-08-06] MEDS: amLODIPine BESYLATE 10 MG TABLET PO SCH (09:22)
[2022-08-06] MEDS: DULoxetine HCL 20 MG CAPSULE.DR PO SCH (09:22)
[2022-08-06 10:05] LABS: HEMATOCRIT 49.8 % (36-48); MEAN CORPUSCULAR HEMOGLOBIN 27 pg (27-31); MEAN CORPUSCULAR HGB CONC 32 % (32-36); MEAN CORPUSCULAR VOLUME 83 fL (79.0-98.0); PLATELET COUNT (AUTO) 586 K/uL (130-430); RED BLOOD CELL COUNT(AUTO) 6.03 MIL/uL (4.2-6.2); RED CELL DISTRIBUTION WIDTH 16.6 % (9.0-15.0); WHITE BLOOD COUNT (AUTO) 15.1 K/uL (4.8-10.8)
--- NOTE | 2022-08-06 11:45 | NUR ---
COOKIE PADDER ACSW Kristin responded to a Social Service consult for Hospice eval FAMILY CONTACT- ACSW Kristin contacted patient's daughter Cheryl Rdz to inquire into family's awareness of hospice eval. According to Cheryl, the family had been contacted several times over the weekend by [facility] and [facility] . Cheryl also stated she does not want to be the main contact due to residing in [place]. She expressed a desire to have her brother Lázaro, but did not provide contact info. PATIENT CONTACT- ACSW Kristin met with patient at bedside. ACSW completed introductions, provided business card, reason for referral and patient was open to contact. HOSPICE- Patient expressed not being ready to pursue hospice and "wanting to return home". Patient expressed a desire to return home and shared she had been in and out of the hospitals since September. She also expressed concern with having to complete an extension for her Section 8. Patient did not want to discuss hospice further at this time. She provided her son's contact info, Lázaro Strong and Section 8 worker Dalia Acosta's email to notify her of patient's admission Mobile Patrol Officer will continue to be available as needed
[2022-08-06 12:00] VITALS: BP_SYST 135
[2022-08-06] MEDS: LEVOFLOXACIN 250 MG/D5W 50 ML IV SCH (12:28)
[2022-08-06 12:52] LABS: BAND % (MANUAL) 3 % (0-6)
[2022-08-06 12:53] LABS: ATYPICAL LYMPHOCYTES % 4 % (0-0); BASOPHILS % (MANUAL) 0 % (0-2); EOSINOPHILS % (MANUAL) 4 % (0-7); LYMPHOCYTES % (MANUAL) 11 % (20-46); MONOCYTES % (MANUAL) 10 % (0-11)
[2022-08-06 16:00] VITALS: BP_SYST 136
[2022-08-06] MEDS: FLUCONAZOLE 100 mg/ NS 50 ML IV SCH (17:00)
--- NOTE | 2022-08-06 18:05 | NUR ---
Nutrition Note: Ordered: CCHO, 60g PRO, Mechanical Soft diet Ordered: Tremayne BID, Glucerna BID (Supplements yield 620 kcals, 25g PRO) Margarita Traylor MPH, RDN
--- NOTE | 2022-08-06 20:12 | NUR ---
Report given to warehouse worker 2nd shift RN for continuity of care. Patient stable condition. No distress noted.
[2022-08-06] MEDS: DIVALPROEX SODIUM 250 MG TAB.SR.24H (DEPAKOTE ER) PO SCH (23:08)
[2022-08-07 00:25] VITALS: BP_SYST 127
[2022-08-07] MEDS: 0.45% NACL 1,000 ML IV SCH (03:45)
[2022-08-07] MEDS: NORMAL SALINE 5 ML DISP.SYRIN IVF SCH ×3 (06:00→21:17)
[2022-08-07 06:43] LABS: BASOPHILS # (AUTO) 0.1 K/uL (0.0-0.2); BASOPHILS % (AUTO) 0.7 % (0.0-2.0); EOSINOPHILS # (AUTO) 0.8 K/uL (0.0-0.4); EOSINOPHILS % (AUTO) 5.3 % (0.0-4.0); HEMATOCRIT 48.5 % (36-48); HEMOGLOBIN 15.6 g/dL (12.0-16.0); LYMPHOCYTES # (AUTO) 3.1 K/uL (1.0-5.5); LYMPHOCYTES % (AUTO) 21.7 % (20.5-51.5); MEAN CORPUSCULAR HEMOGLOBIN 27 pg (27-31); MEAN CORPUSCULAR HGB CONC 32 % (32-36); MEAN CORPUSCULAR VOLUME 83 fL (79.0-98.0); MONOCYTES # (AUTO) 1.2 K/uL (0.0-1.0); MONOCYTES % (AUTO) 8.4 % (1.7-9.3); NEUTROPHILS # (AUTO) 9.3 K/uL (1.8-7.7); NEUTROPHILS % (AUTO) 63.9 % (40.0-70.0); PLATELET COUNT (AUTO) 556 K/uL (130-430); RED BLOOD CELL COUNT(AUTO) 5.87 MIL/uL (4.2-6.2); RED CELL DISTRIBUTION WIDTH 17.1 % (9.0-15.0); WHITE BLOOD COUNT (AUTO) 14.5 K/uL (4.8-10.8)
[2022-08-07 07:03] LABS: CALCIUM 8.9 mg/dL (8.4-11.0); CREATININE 0.92 mg/dL (0.55-1.30)
[2022-08-07] MEDS: LEVOTHYROXINE SODIUM 0.137 MG TABLET PO SCH (08:08)
[2022-08-07] MEDS: HYDROcodone/ACETAMIN 5-325 MG TAB (NORCO/ VICODIN) PO PRN (08:14)
[2022-08-07 09:02] VITALS: BP_SYST 119
[2022-08-07] MEDS: hydrALAZINE HCL 25 MG TABLET PO SCH ×3 (09:41→21:00)
[2022-08-07] MEDS: busPIRone HCL 5 MG TABLET PO SCH ×2 (09:41→20:59)
[2022-08-07] MEDS: amLODIPine BESYLATE 10 MG TABLET PO SCH (09:41)
[2022-08-07] MEDS: METOPROLOL TARTRATE 50 MG TABLET PO SCH ×2 (09:41→20:59)
[2022-08-07] MEDS: GABAPENTIN 300 MG CAPSULE PO SCH ×2 (09:41→20:59)
[2022-08-07] MEDS: MORPHINE SULFATE 15 MG TABLET.ER PO SCH ×2 (09:42→20:51)
[2022-08-07] MEDS: ENOXAPARIN SODIUM 30 MG/0.3 ML SYRINGE SUBCUT SCH (09:42)
[2022-08-07 11:15] VITALS: BP_SYST 122
[2022-08-07] MEDS: DULoxetine HCL 20 MG CAPSULE.DR PO SCH (11:56)
[2022-08-07] MEDS ORDERED: FLUC200T PO (14:03)
[2022-08-07] MEDS ORDERED: LEVO750T64 PO (14:03)
--- NOTE | 2022-08-07 14:10 | NUR ---
DIELECTRIC TESTING MACHINE OPERATOR Per patient's request, ACSW Kristin attempted to email Section 8 Worker [email or web address] [email or web address] to inform her of patient's hospitalization. Test email came back as undeliverable. Industrial [address] Magistrate will continue to be available as needed
[2022-08-07 15:00] VITALS: BP_SYST 116
--- NOTE | 2022-08-07 15:25 | NUR ---
IMPROVEMENT ADVISOR ACSW Kristin contacted [facility] to obtain update on hospice services. According to Veronica , the daughter expressed interest but did not consent at this time. Veronica also shared that both patient and daughter Cheryl shared the patient wanted to return home and "wanted rehab or PT". Veronica shared if patient consents to hospice, she will return to [facility] but they will not provide PT. As requested by [facility]: After review of discharge summary, [facility] copy to [facility] for Case Management review as it states "group home with physical therapy increase ambulation". Career Development Manager will continue to be available as needed
--- NOTE | 2022-08-07 15:56 | NUR ---
PATIENT REFUSES WOUND CARE FRIDAY PHOTO/ASSESSMENT.
[2022-08-07] MEDS: FLUCONAZOLE 100 mg/ NS 50 ML IV SCH (17:00)
[2022-08-07] MEDS: DIVALPROEX SODIUM 250 MG TAB.SR.24H (DEPAKOTE ER) PO SCH (21:00)
--- NOTE | 2022-08-07 22:04 | NUR ---
D/C Patient Patient given medication reconciliation form and D/C instructions. Exit Care provided. Patient verbalized understanding. MD discussed with patient the results and treatment provided. Total Care being transferred via gurney by two hat maker. Patient in stable condition, ID band removed. IV catheter removed, intact and dressing applied, no active bleeding. Rx of patient given. Patient educated on pain management. All belongings sent with patient. Addendum: 08/07/22 at 2351 by Kalpesh Damon, YARY PRINGLE report already given by AM shift RN to YARY Young at to [facility], patient will be going to room 37B.
== END 2022-08-07 22:00 | DRG 177 ==
LOC: SED 17:52 → STU 22:43 → SMU 08-05 11:37
PROVIDERS: ADMIT Specialist; ATTEND Specialist
DX: J69.0 Pneumonitis due to inhalation of food and vomit (principal); G92.9 Unspecified toxic encephalopathy; I50.43 Acute on chronic combined systolic (congestive) and diastolic (congestive) heart failure; J96.02 Acute respiratory failure with hypercapnia; J96.01 Acute respiratory failure with hypoxia; L03.119 Cellulitis of unspecified part of limb; N17.9 Acute kidney failure, unspecified; I13.0 Hypertensive heart and chronic kidney disease with heart failure and stage 1 through stage 4 chronic kidney disease, or unspecified chronic kidney disease; J44.1 Chronic obstructive pulmonary disease with (acute) exacerbation; J44.0 Chronic obstructive pulmonary disease with (acute) lower respiratory infection; I42.9 Cardiomyopathy, unspecified; B37.49 Other urogenital candidiasis; E88.09 Other disorders of plasma-protein metabolism, not elsewhere classified; Z20.822 Contact with and (suspected) exposure to COVID-19; L30.8 Other specified dermatitis; I50.9 Heart failure, unspecified; E66.9 Obesity, unspecified; D75.839 Thrombocytosis, unspecified; N18.9 Chronic kidney disease, unspecified; E11.22 Type 2 diabetes mellitus with diabetic chronic kidney disease; Z88.1 Allergy status to other antibiotic agents; Z88.8 Allergy status to other drugs, medicaments and biological substances; Z79.899 Other long term (current) drug therapy; Z79.1 Long term (current) use of non-steroidal anti-inflammatories (NSAID); Z68.34 Body mass index [BMI] 34.0-34.9, adult
CPT/HCPCS: 36415; 36600; 71045; 76770; 80048; 80053; 81000; 82570; 82803-TC; 82962; 83735; 83880; 84100; 84302; 84484; 85007; 85025; 85027; 85651-TC; 86140; 87086; 93005; 93306; 94640; 94760; 96360; 97163-GP; 99291; G0378; J0456; J1450; J1650; J1956; J7030; J7040; J7050; J7512

== ENCOUNTER 2022-09-20 16:26 | Emergency (ER) | payer OTHER, MEDICAID ==
[~2022-09-20 16:26] MED LIST changes: +ACET325C5 PO; +BUSP5TAB3 PO; +CHOL500013; +CHOL500052 PO; +DIPH25CA83 PO; +DIVA250T PO; +DOCU-144 PO; +DULO20CA PO; +FISH1CAP18 PO; +FLUC200T PO; +FLUO40CA8 PO; +FURO-150 PO; +GABA600T PO; +GLUC1VIA4 IM; +HYDR-4039 PO; +IPRA4AER INH; +LEVO137T2 PO; +LEVO750T64 PO; +LISI20TA30 PO; +METO50TA7 PO; +MORP15TA60 PO; +NL IV; +NOR10 PO; +OMEP40CA20 PO; +PERC10 PO; +POLY17PO4 PO; +PRAZ1CAP2 PO; +SACC250C3 PO; +SPIR50TA PO; +TRAZ-250 PO
[2022-09-20 16:30] VITALS: BP_SYST 154
[2022-09-20] MEDS ORDERED: NACL 0.9% 1,000 ML IV ONE (17:30)
--- NOTE | 2022-09-20 18:00 | NUR ---
Patient to ER bed H2 to gown for evaluation. Side rails up. Report given to DENVER RN.
[2022-09-20 20:29] LABS: BASOPHILS # (AUTO) 0.1 K/uL (0.0-0.2); BASOPHILS % (AUTO) 0.5 % (0.0-2.0); EOSINOPHILS % (AUTO) 0.4 % (0.0-4.0); HEMATOCRIT 45.4 % (36-48); HEMOGLOBIN 15.1 g/dL (12.0-16.0); LYMPHOCYTES # (AUTO) 1.4 K/uL (1.0-5.5); MEAN CORPUSCULAR HEMOGLOBIN 27 pg (27-31); MEAN CORPUSCULAR HGB CONC 33 % (32-36); MEAN CORPUSCULAR VOLUME 80 fL (79.0-98.0); MONOCYTES # (AUTO) 1.2 K/uL (0.0-1.0); MONOCYTES % (AUTO) 10.8 % (1.7-9.3); NEUTROPHILS # (AUTO) 8.6 K/uL (1.8-7.7); NEUTROPHILS % (AUTO) 76.3 % (40.0-70.0); PLATELET COUNT (AUTO) 576 K/uL (130-430); RED BLOOD CELL COUNT(AUTO) 5.64 MIL/uL (4.2-6.2); RED CELL DISTRIBUTION WIDTH 18.3 % (9.0-15.0); WHITE BLOOD COUNT (AUTO) 11.3 K/uL (4.8-10.8)
[2022-09-20 20:45] LABS: CALCIUM 9.2 mg/dL (8.4-11.0); CREATININE 0.72 mg/dL (0.55-1.30)
[2022-09-20 20:50] LABS: TOTAL BILIRUBIN 0.5 mg/dL (0.0-1.0)
[2022-09-20] MEDS ORDERED: MAG-AL HYDROX/SIMETH 30 ML UDC PO ONE (21:00)
[2022-09-20] MEDS ORDERED: FAMOTIDINE 20 MG TABLET PO ONE (21:00)
[2022-09-20 21:04] LABS: ALBUMIN 2.1 g/dL (3.4-4.8)
[2022-09-20] MEDS ORDERED: FAMO20TA8 PO (21:41)
--- NOTE | 2022-09-20 22:45 | NUR ---
MEAL PROVIDED TO PT. TOLERATED WELL.
--- NOTE | 2022-09-21 01:17 | NUR ---
Report received from YARY Chavarria for continuity of care. Patient in stable condition.
--- NOTE | 2022-09-21 01:24 | NUR ---
Called [facility] ambulance and pickup time at 8 am. Patient made aware. Requested to [facility] to see if there is any other available times.
--- NOTE | 2022-09-21 06:51 | NUR ---
Spoke to Christina at [facility] and gave update regarding pt condition/discharge back to facility.
--- NOTE | 2022-09-21 07:20 | NUR ---
received report from MARTI PRINGLE. pt noted resting in position of comfort in [facility], no acute distress noted. breathing even and unlabored. safety measures in place. denies pain or discomfort. awaiting transportation back to [facility]. no changes at this time
--- NOTE | 2022-09-21 07:34 | NUR ---
transportation at bedside
[2022-09-21 07:57] VITALS: BP_SYST 150
== END 2022-09-21 07:34 | disposition home or self-care (01) ==
LOC: SED 16:26
DX: R10.9 Unspecified abdominal pain (principal); J44.9 Chronic obstructive pulmonary disease, unspecified; E11.9 Type 2 diabetes mellitus without complications; Z88.1 Allergy status to other antibiotic agents; Z88.8 Allergy status to other drugs, medicaments and biological substances; Z79.899 Other long term (current) drug therapy
CPT/HCPCS: 99283; 96360; 80053; 83690; 85025; 36415; J7030

== ENCOUNTER 2023-07-17 13:40 | Emergency (ER) | payer OTHER, MEDICAID ==
[~2023-07-17] VITALS: Ht 157.5 cm; Wt 72.6 kg
[~2023-07-17 13:40] MED LIST changes: +FAMO20TA8 PO
[2023-07-17 13:45] VITALS: BP_SYST 136; PULSE 90; RESP 22; TEMP 98.6; O2SAT 98
[2023-07-17] MEDS ORDERED: LIDO1ADH91 ID (15:17)
[2023-07-17 16:08] VITALS: BP_SYST 126; PULSE 72; RESP 15; TEMP 97.2; O2SAT 99
== END 2023-07-17 15:40 | disposition home or self-care (01) ==
LOC: SED 13:40
DX: S20.211A Contusion of right front wall of thorax, initial encounter (principal); J44.9 Chronic obstructive pulmonary disease, unspecified; E11.9 Type 2 diabetes mellitus without complications; Z88.8 Allergy status to other drugs, medicaments and biological substances; Z88.1 Allergy status to other antibiotic agents; Z79.899 Other long term (current) drug therapy; V49.59XA Passenger injured in collision with other motor vehicles in traffic accident, initial encounter; Y93.89 Activity, other specified; Y92.89 Other specified places as the place of occurrence of the external cause; Y99.8 Other external cause status
CPT/HCPCS: 71100; 99283